=== PATIENT | female | born 1965 | race Caucasian/White ===

== ENCOUNTER 2019-08-16 11:56 | Day surgery (SDC) | payer OTHER ==
[2019-08-13 13:58] LABS: Absolute Lymphocytes (CBC) 3.2 K/uL (0.7-4.9); Basophils % 0.7 % (0-1.3); Hematocrit 44.1 % (36.0-45.0); Lymphocytes % 35.9 % (15.3-44.8); RBC Red Blood Cell Count 4.97 M/uL (3.86-4.86)
[2019-08-13 14:17] LABS: Potassium 3.8 mmol/L (3.5-5.1)
--- NOTE | 2019-08-13 14:18 | RAD REPORT ---
EXAM DESCRIPTION: RAD - Chest Pa And Lat (2 Views) - 08/13/2019 2:08 pm CLINICAL HISTORY: PREOP SAME DAY SURGERY ROOM 4, pending hemorrhoid surgery COMPARISON: No comparisons TECHNIQUE: Frontal and lateral views of the chest were obtained. FINDINGS: The lungs are clear. Heart size is normal and central vasculature is within normal limit s. No pleural effusion or pneumothorax seen. No acute bony finding noted. No aortic abnormality. IMPRESSION: No acute cardiopulmonary process.
--- NOTE | 2019-08-13 15:01 | EKG ---
Test Date: 2019-08-13 Test Time: 13:41:46 Television Installer: MORRIS MEASUREMENT RESULTS: Intervals: Rate: 66 VA: 146 QRSD: 86 QT: 408 QTc: 427 [place] Tower: P: 60 VA: 146 QRS: 101 T: 46 INTERPRETIVE STATEMENTS: Normal sinus rhythm Rightward axis Borderline ECG No previous ECG available for comparison Electronically Signed On 08-13-19 15:00:30 CLINICAL DATA SPECIALIST by Jose Antonio Mukherjee
[2019-08-16] MEDS ORDERED: Ringers Lactate 1,000 ML IV ONE (12:17)
[2019-08-16] MEDS ORDERED: CEFAZOLIN/SWI 1gm 1 GM/10 ML SYR ONE (12:21)
[2019-08-16] MEDS ORDERED: LIDOCAINE 2% MPF 5 ML VIAL ONE (13:43)
[2019-08-16] MEDS ORDERED: propofoL 200 MG/20 ML VIAL IV ONE (13:43)
[2019-08-16] MEDS ORDERED: FENTANYL CITR 100 MCG/2 ML ONE (13:43)
[2019-08-16] MEDS ORDERED: MIDAZOLAM HCL 2 MG/2 ML INJ ONE (13:43)
[2019-08-16] MEDS ORDERED: KETAMINE HCL 500 MG/5 ML VIAL ONE (13:43)
[2019-08-16] MEDS ORDERED: dexAMETHasone 4 MG/ML VIAL ONE (14:11)
[2019-08-16] MEDS ORDERED: ONDANSETRON 4 MG/2 ML VIAL ONE ×2 (14:12→14:54)
--- NOTE | 2019-08-16 14:17 | P.BOP ---
Preoperative diagnosis: thrombosed hemorrhoids Postoperative diagnosis: same, int and ext hemorrhoids Primary procedure: EUA, ANoscopy, Rigid proctoscopy, Hemorrhoidectomy Estimated blood loss: <10cc Specimen: hemorrhoid Findings: thrombosed external hemorrhoids Anesthesia: General Complications: None Transferred to: Recovery Room Condition: Good
[2019-08-16] MEDS: MORPHINE 4 MG/ML SYR ONE ×2 (14:57→15:16)
[2019-08-16] MEDS ORDERED: MEPERIDINE HCL 25 MG/0.5 ML ONE (15:24)
[2019-08-16] MEDS ORDERED: MEPERIDINE HCL 50 MG/ML ONE (15:30)
[2019-08-16] MEDS ORDERED: HYDROCODONE/APAP 7.5/325 MG TAB ONE (16:09)
[2019-08-16 17:01] VITALS: BP 124/62; TEMP 97.7; O2SAT 96
--- NOTE | 2019-08-17 01:24 | DS ---
Date of Discharge: 08/16/2019 Diagnosis: Thrombosed hemorrhoids. Procedure: Hemorrhoidectomy, examination under anesthesia, anoscopy, rigid proctoscopy. Disposition: Home. Activity: As tolerated. No heavy lifting. Followup: Follow up in my office in 1 week. Call for appointment at [phone]. Sitz baths 4 times a day after every bowel movement. Medications: Include hydrocodone q.4 hours p.r.n. pain, Bactrim DS p.o. b.i.d. YVAN/FAITH Voice ID: [id number] Report ID: [id number]
--- NOTE | 2019-08-17 01:30 | OP ---
Date of Procedure: 08/16/2019 Surgeon: Armnado Guerin MD Preoperative Diagnosis: Thrombosed prolapsed hemorrhoid. Postoperative Diagnosis: Thrombosed prolapsed hemorrhoid plus internal and external hemorrhoids. Procedure: Examination under anesthesia, anoscopy, rigid proctoscopy, external hemorrhoidectomy. Specimen: Hemorrhoids. Finding: Thrombosed external hemorrhoid. Anesthesia: General plus local. Indication: This is the case of a female, who was sent to us by the chef teacher since the pat ient has large hemorrhoids present with a thrombosis on it, prolapsed, tender. She barely can sit. The GI saw that it is really too big for his technique, so he sent it to us for hemorrhoidectomy. Th e benefits, alternatives, and risks of a hemorrhoidectomy were fully explained to the patient with th e rest of the procedure as described above, which include, but not limited to infection, bleeding, da mage to adjacent structures, anesthesia complication, anal stricture, anal incontinence, IA, and even . She also understand this may not relieve her symptoms, she might need more than one surgical intervention. She understood and signed a consent. She also understands the importance of losing w eight and sitz baths after the hemorrhoidectomy. She also advised to avoid constipation and follow u p with her GI doctor for colonoscopy. Description Of Procedure: Patient was brought to the operating room, placed in supine position. Ane sthesia was given without complication. Patient was placed in lithotomy position with proper protect ion. Rectal examination was done after the area was prepped and draped in a sterile fashion and time -out was called. Then, after that, I proceeded to introduce a rigid all the way about 15 cm, we noted external and internal hemorrhoids. Two of external hemorrhoids showed some thrombosis, hard, prolapsed and those were the one that did not want to get better with conservative treatment. So at that moment, we proceeded with the anoderm in place after removing the rigid proctoscopy. The anoderm with a window on the side allowed me to visualize the anal canal properly and identify those 2 . We removed them by getting the anoderm open with a sharp knife, identify the hemorrhoi dominique plexus, separate it from the sphincter to avoid any damage, then transect the hemorrhoidal plexus with LigaSure, and a little one next which was also excised. Area was irrigated and then the anoder m was approximated with 3-0 chromic. Local anesthetic was applied over the area and hemostasis previ ously. Patient tolerated the procedure well. Surgicel placed over the area. Sponge count and instr ument counts were correct. Patient was sent to recovery in stable condition. YVAN/FAITH Voice ID: [id number] Report ID: [id number]
== END 2019-08-16 16:45 | disposition home or self-care (01) ==
LOC: OR 11:56
PROVIDERS: ATTEND Surgery
PROC: 0DJD8ZZ Inspection of Lower Intestinal Tract, Via Natural or Artificial Opening Endoscopic (ICD-10-PCS; 2019-08-16)
PROC: 06BY0ZC Excision of Hemorrhoidal Plexus, Open Approach (ICD-10-PCS; principal; 2019-08-16 15:00)
DX: K64.5 Perianal venous thrombosis (principal); K64.8 Other hemorrhoids; Z80.0 Family history of malignant neoplasm of digestive organs
CPT/HCPCS: 93005; 85025; 80048; 36415; 88305; 71046; 46320; 45300; J2704; J2250; J3010; J2175 ×2; J0690; J7120; J2405 ×2; 88304